=== PATIENT | male | born 2000 | race Caucasian/White ===

== ENCOUNTER 2022-02-12 03:43 | Inpatient (IN) ==
[2022-02-12 04:39] LABS: Basophils # 0.1 K/mcL (0.0-0.2); Basophils % 0.8 %; Eosinophils # 0.1 K/mcL (0.0-0.6); Eosinophils % 1.9 %; Hematocrit 40.3 % (37.5-50.1); Hemoglobin 13.2 g/dL (12.9-16.9); Immature Granulocytes % 0.2 % (0-4); Lymphocytes # 2.2 K/mcL (0.6-4.6); Mean Corpuscular HGB Conc 32.8 g/dL (31.6-35.5); Mean Corpuscular Hemoglobin 28.1 pg (28.0-33.3); Mean Corpuscular Volume 85.7 fL (83.0-100.0); Mean Platelet Volume 10.1 fL (9.4-12.4); Monocytes # 0.6 K/mcL (0.0-1.3); Monocytes % 8.7 %; Neutrophils # 3.4 K/mcL (1.6-8.9); Platelet Count 323 K/mcL (140-400); Red Cell Distribution Width 13.1 % (11.5-14.5); Segmented Neutrophils % 54.4 %; White Blood Count 6.3 K/mcL (4.3-11.1)
[2022-02-12 04:57] LABS: Acetaminophen < 10 mcg/mL (10-20); BUN/Creatinine Ratio 16 (6-26); Blood Urea Nitrogen 15 mg/dL (6-20); Calcium 9.6 mg/dL (8.6-10.3); Carbon Dioxide 29 mEq/L (23-29); Chloride 104 mEq/L (98-107); Ethanol < 10 mg/dL (Less than 10); Glucose 96 mg/dL (70-105); Osmolality,Calculated 289 (280-300); Potassium 4.1 mEq/L (3.5-5.1); Salicylate < 2.5 mg/dL (15.0-30.0); Sodium 139 mEq/L (136-145)
[2022-02-12 05:44] LABS: Amphetamine Screen,Urine Negative ng/mL (Cutoff=1000); Barbiturate Screen,Urine Negative ng/mL (Cutoff=200); Benzodiazepines Screen,Urine Negative ng/mL (Cutoff=200); Cannabinoid Screen,Urine Negative ng/mL (Cutoff = 50); Cocaine Screen,Urine Negative ng/mL (Cutoff= 300); Opiate Screen,Urine Negative ng/mL (Cutoff=300); Phencyclidine Screen,Urine Negative ng/mL (Cutoff=25)
[2022-02-12 05:50] LABS: Bilirubin,Urine Negative (Negative); Blood,Urine Negative (Negative); Clarity,Urine Clear (Clear); Color,Urine Yellow (Yellow); Glucose,Urine (UA) Normal (Normal); Ketones,Urine Negative (Negative); Leukocyte Esterase,Urine Negative (Negative); Nitrite,Urine Negative (Negative); Protein,Urine Trace mg/dL (Neg-Trace); Specific Gravity,Urine >= 1.030 (1.010-1.025); Urobilinogen,Urine Normal (Normal)
[2022-02-12 06:07] LABS: Hyaline Casts,Urine Few per lpf (None Seen); Mucus,Urine Few per lpf (None-Few); RBC,Urine 0-3 per hpf (0-3); Squamous Epithelial Cell,Urine Few per hpf (None-Few); WBC,Urine 0-3 per hpf (0-3)
[2022-02-12 08:05] LABS: Influenza A PCR Negative (Negative); Influenza B PCR Negative (Negative); Resp. Syncytial Virus PCR Negative (Negative)
[2022-02-12 08:07] LABS: SARS-CoV-2 by PCR (In House) Negative (Negative)
[2022-02-12] MEDS ORDERED: Haloperidol Lactate 5 MG/ML VIAL IM PRN (08:12)
[2022-02-12] MEDS ORDERED: haloperidoL 5 MG TABLET PO PRN (08:12)
[2022-02-12] MEDS ORDERED: *HR* LORazepam 2 MG/ML VIAL IM PRN (08:12)
[2022-02-12] MEDS ORDERED: *HR* LORazepam 1 MG TABLET PO PRN (08:12)
[2022-02-12] MEDS ORDERED: Acetaminophen 325 MG TABLET PO PRN (08:12)
[2022-02-12] MEDS ORDERED: *HR* LORazepam 2 MG/ML VIAL IM ONE (08:30)
[2022-02-12] MEDS ORDERED: Haloperidol Lactate 5 MG/ML VIAL IM ONE (08:30)
[2022-02-12] MEDS ORDERED: hydrOXYzine pamoate 25 MG CAPSULE PO PRN (09:00)
[2022-02-12] MEDS ORDERED: Mag Hydrox/Al Hydrox/Simeth 30 ML UDC PO PRN (14:51)
[2022-02-12] MEDS ORDERED: MOM Conc 10 ML UD.LIQ PO PRN (14:51)
[2022-02-12] MEDS ORDERED: QUEtiapine Fumarate 25 MG TABLET PO PRN (21:00)
[2022-02-12] MEDS: hydrOXYzine pamoate 25 MG CAPSULE PO SCH (21:18)
[2022-02-12] MEDS: risperiDONE 0.25 MG TABLET PO SCH (21:18)
[2022-02-13] MEDS: risperiDONE 0.25 MG TABLET PO SCH ×2 (09:42→21:21)
[2022-02-13] MEDS: hydrOXYzine pamoate 25 MG CAPSULE PO SCH ×2 (09:42→21:21)
[2022-02-13] MEDS: Nicotine 2 MG GUM BC PRN ×2 (17:10→21:25)
[2022-02-14] MEDS: hydrOXYzine pamoate 25 MG CAPSULE PO SCH ×2 (09:34→20:33)
[2022-02-14] MEDS: risperiDONE 0.25 MG TABLET PO SCH (09:34)
[2022-02-14] MEDS: Nicotine 2 MG GUM BC PRN ×3 (11:17→20:33)
[2022-02-14] MEDS: risperiDONE 1 MG TABLET PO SCH (20:33)
[2022-02-15] MEDS: hydrOXYzine pamoate 25 MG CAPSULE PO SCH ×2 (08:39→20:49)
[2022-02-15] MEDS: risperiDONE 1 MG TABLET PO SCH ×2 (08:40→20:49)
[2022-02-15] MEDS: Nicotine 2 MG GUM BC PRN ×3 (08:41→19:43)
[2022-02-15 23:18] VITALS: O2SAT 99
[2022-02-16] MEDS: hydrOXYzine pamoate 25 MG CAPSULE PO SCH (09:01)
[2022-02-16] MEDS: risperiDONE 1 MG TABLET PO SCH (09:02)
[2022-02-16] MEDS: Nicotine 2 MG GUM BC PRN (09:03)
[2022-02-16 09:14] VITALS: BP 121/80; PULSE 79; TEMP 97.3
== END 2022-02-16 10:35 | disposition home or self-care (01) | DRG 750 ==
LOC: EMEROOARM 03:43 → 1ANU 09:50
PROVIDERS: ADMIT Psychiatry & Neurology Psychiatry; ATTEND Psychiatry & Neurology Psychiatry